=== PATIENT | female | born 1960 | race Caucasian/White ===

== ENCOUNTER 2016-11-07 08:23 | Emergency (ER) | payer OTHER | END 2016-11-07 13:48 | disposition home or self-care (01) | LOC: ER1 08:23 | DX: S80.01XA Contusion of right knee, initial encounter (principal); I10 Essential (primary) hypertension; E78.5 Hyperlipidemia, unspecified; W01.0XXA Fall on same level from slipping, tripping and stumbling without subsequent striking against object, initial encounter; Y92.69 Other specified industrial and construction area as the place of occurrence of the external cause; Y99.0 Civilian activity done for income or pay | CPT/HCPCS: 73564; 99283 ==

== ENCOUNTER → 2021-05-21 | Outpatient (CLI) | payer BC | LOC: KOH-I 11:14 | DX: M25.511 Pain in right shoulder (principal) | CPT/HCPCS: 73030 ==